=== PATIENT | male | born 1985 | race Caucasian/White ===

== ENCOUNTER 2021-10-27 22:43 | Emergency (ER) | payer OTHER ==
[2021-10-28] MEDS ORDERED: HYDROCODON-ACE1 EAC4 PO (01:03)
[2021-10-28] MEDS ORDERED: ZOFRAN ODT 4 MG4 MG SL (01:03)
== END 2021-10-28 01:30 | disposition home or self-care (01) ==
LOC: ER1 22:43
DX: S20.212A Contusion of left front wall of thorax, initial encounter (principal); M25.522 Pain in left elbow; M79.602 Pain in left arm; V86.59XA Driver of other special all-terrain or other off-road motor vehicle injured in nontraffic accident, initial encounter; Y92.410 Unspecified street and highway as the place of occurrence of the external cause
CPT/HCPCS: 71046; 73060; 73080; 73090; 99283

== ENCOUNTER 2021-11-25 16:54 | Emergency (ER) | payer OTHER ==
[~2021-11-25 16:54] MED LIST: HYDROCODON-ACE1 EAC4 PO; ZOFRAN ODT 4 MG4 MG SL
[2021-11-25] MEDS ORDERED: LODINE CAP 300300 MG PO (20:01)
[2021-11-25] MEDS ORDERED: NORFLEX 100 MG100 MG PO (20:01)
== END 2021-11-25 20:04 | disposition home or self-care (01) ==
LOC: ER1 16:54
DX: S22.42XA Multiple fractures of ribs, left side, initial encounter for closed fracture (principal); F17.200 Nicotine dependence, unspecified, uncomplicated; V86.99XA Unspecified occupant of other special all-terrain or other off-road motor vehicle injured in nontraffic accident, initial encounter
CPT/HCPCS: 71250; 99283